=== PATIENT | male | born 1960 | race Caucasian/White ===

== ENCOUNTER 2019-06-13 10:53 | Inpatient (IN) | payer BC ==
[~2019-06-13] VITALS: Ht 167.6 cm; Wt 92.2 kg
[2019-06-21] VITALS (11 sets, daily range): BP systolic 106–134; BP diastolic 64–78; PULSE 63–77; TEMP 97.4–98
[2019-06-21 10:58] LABS: CALCIUM 8.6 mg/dL (8.4-10.2); CREATININE, serum 0.81 (0.66-1.25); POTASSIUM 4.1 mmol/L (3.4-5.0)
[2019-06-21] MEDS ORDERED: PRINIVIL20 MG PO (10:58)
[2019-06-21] MEDS ORDERED: L-LYSINE500 M1 PO (10:59)
[2019-06-21] MEDS ORDERED: VITAMIN B12 781 TAB PO (11:00)
--- NOTE | 2019-06-21 11:00 | NUR ---
Patient brought back to bay 6, ambulated without difficulty. at bedside. Consents reviewed and signed. Heart sounds regular, lung sounds clear, bowel sounds active. Vital signs stable. IV started to right wrist, lab at bedside to collect blood. Fluids infusing without difficulty. Warm blanket provided. Call cook within reach, all safety maintained. Will continue to monitor.
[2019-06-21] MEDS ORDERED: FOLIC ACID0.4 MG PO (11:01)
[2019-06-21] MEDS ORDERED: BILBERRY EXTRAC80 MG PO (11:02)
[2019-06-21] MEDS ORDERED: VITAMINE200 PO (11:02)
[2019-06-21] MEDS ORDERED: CINNAMON500 MG PO (11:03)
[2019-06-21] MEDS ORDERED: ARGININE PO (11:04)
[2019-06-21] MEDS ORDERED: CALCIUM-MAGNES1 EAC1 PO (11:07)
[2019-06-21] MEDS ORDERED: CBD oil SL (11:09)
[2019-06-21 11:29] LABS: BASO # 0.1 (0.0-0.2); BASO % 0.8 % (0.0-2.0); EOS # 0.1 (0.0-0.7); EOS % 1.2 % (0-4.0); GRAN % 48.9 % (42.2-75.2); LYMPH # 2.2 (1.2-3.4); MEAN CELL VOLUME 73 fl (80.0-100.0); MEAN CORPUSCULAR HGB CONC 29 g/dl (33.0-37.0); MEAN PLATELET VOLUME 8.5 fl (7.4-10.4); MONO # 0.7 (0.1-0.6); MONO % 11.4 % (1.7-9.3); PLATELET COUNT 590 K/mm3 (130-400); RED BLOOD COUNT 4.44 M/mm3 (4.20-5.60); REDCELL DISTRIBUTION WIDTH-CV 18.7 % (11.5-14.5)
[2019-06-21 11:30] LABS: HEMATOCRIT 32.3 % (42.0-52.0); HEMOGLOBIN 9.4 g/dl (13.5-18.0); MEAN CORPUSCULAR HEMOGLOBIN 21 pg (27.0-31.0)
--- NOTE | 2019-06-21 19:33 | NUR ---
Patient received post op to room 349, report from pacu nurse Tabitha. Patient alert & oriented. family at bedside. Vss on room air. Ivf. Tolerating water, no nausea. No interest in any other clear liquids. Minor to DD, marginal output. Low lap sites x5, drg intact. scds ble. Bedside report to Ivis MOSQUERA.
--- NOTE | 2019-06-21 21:49 | NUR ---
PATIENT UP IN CHAIR AT BEDSIDE. TRANSFERS WELL WITH MINIMAL ASSIST.
[2019-06-22] VITALS (7 sets, daily range): BP systolic 131–149; BP diastolic 42–93; PULSE 57–98; TEMP 97.4–98.5
--- NOTE | 2019-06-22 00:30 | NUR ---
Patient transfers back to bed without problem. Lap sites x5 dry and intact. Denies nausea or pain. IVF infusing to right wrist without redness or swelling. Minor to BSD with cloudy yellow urine noted. CPAP on.
--- NOTE | 2019-06-22 04:00 | NUR ---
Urine clearing, emptied 400cc at this time. Patient denies pain.
--- NOTE | 2019-06-22 06:20 | NUR ---
DC'd asencio catheter after deflating balloon. Tolerated without problem. 650cc emptied from drainage bag.
[2019-06-22 07:19] LABS: BASO % 0.1 % (0.0-2.0); GRAN # 8.7 (1.4-6.5); GRAN % 80.1 % (42.2-75.2); LYMPH # 1.3 (1.2-3.4); LYMPH % 12.1 % (20.0-51.0); MEAN CELL VOLUME 73 fl (80.0-100.0); MEAN CORPUSCULAR HGB CONC 29 g/dl (33.0-37.0); MEAN PLATELET VOLUME 8.7 fl (7.4-10.4); MONO # 0.8 (0.1-0.6); MONO % 7.2 % (1.7-9.3); PLATELET COUNT 602 K/mm3 (130-400); RED BLOOD COUNT 4.28 M/mm3 (4.20-5.60); REDCELL DISTRIBUTION WIDTH-CV 18.7 % (11.5-14.5)
[2019-06-22 07:29] LABS: CALCIUM 8.6 mg/dL (8.4-10.2); CREATININE, serum 0.84 (0.66-1.25); POTASSIUM 4.3 mmol/L (3.4-5.0)
[2019-06-22 07:42] LABS: HEMATOCRIT 31.4 % (42.0-52.0); HEMOGLOBIN 9.1 g/dl (13.5-18.0); MEAN CORPUSCULAR HEMOGLOBIN 21 pg (27.0-31.0)
--- NOTE | 2019-06-22 08:00 | NUR ---
Patient in bed resting. Alert and oriented x3. Shift assessment complete. Lap sites x5 with bandaids CDI. Tolerating clear liquids. Denies pain or further needs at this time.
--- NOTE | 2019-06-22 09:28 | NUR ---
Initial visit; Patient thanked [facility] for looking in on him and offering God's blessings.
--- NOTE | 2019-06-22 15:00 | NUR ---
SW met with patient and to discuss discharge planning. Patient lives independently at home with his and plans to return there when he is discharged. Patient's PCP is Dr Chu and he obtains prescriptions from [facility]. Patient reports he is independent with all ADLs. SW does not anticipate any discharge needs.
--- NOTE | 2019-06-22 17:40 | NUR ---
Patient has done well this afternoon, has been up ambulating in halls independetly with spouse, steady gait. Denies passing has, however states that he has been belching. Patient states mild pain to abdomen relieved by scheduled pain medications. Tolerting oral intake. Denies pain or further needs at this time. Will report off to weight shifter.
--- NOTE | 2019-06-22 20:01 | NUR ---
AMBULATING IN HALLWAY WITH . HAS EATEN 2 GENERAL MEALS TODAY. NOT PASSING GAS YET.
--- NOTE | 2019-06-22 21:37 | NUR ---
PATIENT REPORTS BEING UP IN CHAIR ALL DAY AND HAS WALKED X4. STILL NOT PASSING GAS. BOWEL SOUNDS HYPOACTIVE, DENIES NAUSEA OR PAIN. SL TO RIGHT WRIST WITHOUT REDNESS OR SWELLING.
--- NOTE | 2019-06-23 00:05 | NUR ---
PATIENT REPORTS LIQUID STOOL WITH BROWN FLECKS, DID NOT THINK HE HAD ANY FLATUS WITH IT.
[2019-06-23 04:41] VITALS: BP 128/79; PULSE 78; TEMP 97.8
--- NOTE | 2019-06-23 06:00 | NUR ---
PATIENT REPORTS ANOTHER LOOSE STOOL WITH BROWN FLECKS. REFUSES ES TYLENOL AT THIS TIME.
[2019-06-23 07:45] VITALS: BP 121/70; PULSE 58; TEMP 97.5
--- NOTE | 2019-06-23 08:00 | NUR ---
UPON ENTRY INTO ROOM, PATIENT IS SITTING UP IN THE CHAIR. PATIENT IS A&OX4. VSS. BOWEL SOUNDS ACTIVE ALL FOUR QUADRANTS. PATIENT TOLERATING DIET WITHOUT ANY COMPLAINTS OF N/V. ABDOMINAL LAP SITES X4 THERESA WITH EDGES WELL APPROXIMATED AND TIRADO SET IN PLACE. SHLOMO DRAIN TO BULB COMPRESSION TO ABDOMINAL LLQ. SCANT AMOUNT OF BRIGHT RED BLOOD PRESENT IN DRAINAGE BULB. SMALL AMOUNT OF OLD BLOODY DRAINAGE PRESENT ON SHLOMO DRAIN SITE DRESSING. MAY CATHETER DRAINING KAREL COLORED URINE TO CATHETER BAG. POSITIVE PEDAL PULSES EQUAL BILATERALLY. INT TO LEFT HAND. CALL LIGHT WITHIN REACH. PATIENT DENIES ANY OTHER NEEDS AT THIS TIME.
--- NOTE | 2019-06-23 08:00 | NUR ---
UPON ENTRY TO ROOM, PATIENT IS SITTING UP IN THE CHAIR WITH HIS PRESENT AT THE BEDSIDE. PATIENT IS A&OX4. VSS. BOWEL SOUNDS ACTIVE ALL FOUR QUADRANTS. PATIENT TOLERATING DIET WITHOUT ANY COMPLAINTS OF N/V. ABDOMINAL LAP SITES X5 DRESSED WITH BANDAIDS AND ARE CD&I. POSITIVE PEDAL PULSES EQUAL BILATERALLY. RIGHT WRIST TO INT. CALL LIGHT WITHIN REACH. PATIENT DENIES ANY OTHER NEEDS AT THIS TIME.
[2019-06-23 12:58] VITALS: BP 122/74; PULSE 56; TEMP 97.8
[2019-06-23 16:55] VITALS: BP 118/75; PULSE 73; TEMP 97.9
--- NOTE | 2019-06-23 19:02 | NUR ---
REPORT GIVEN TO DEMETRI PORTER.
[2019-06-23 20:35] VITALS: BP 115/62; PULSE 63; TEMP 98
--- NOTE | 2019-06-23 21:00 | NUR ---
PATIENT HAS BEEN AMBULATING IN HALLWAY WITHOUT DIFFICULTY. AT BEDSIDE. TAKES HS MED AND WANTS TO BE AWAKENED FOR ES TYLENOL AND TORADOL AT MIDNIGHT. SL TO RIGHT WRIST WITHOUT REDNESS OR SWELLING. REPORTS PASSING ANOTHER LIQUID STOOL. LAP SITES TO ABDOMEN X5 D/I.
--- NOTE | 2019-06-24 00:30 | NUR ---
TAKES SCHEDULED TORADOL AND ES TYLENOL AT THIS TIME.
[2019-06-24 00:37] VITALS: BP 135/73; PULSE 63; TEMP 97.8
[2019-06-24 04:30] VITALS: BP 120/84; PULSE 61; TEMP 97.7
--- NOTE | 2019-06-24 06:15 | NUR ---
UP IN ROOM INDEPENDENTLY. TAKES SCHEDULED ES TYLENOL AND TORADOL AT THIS TIME. HAS LOOSE STOOL AND FLATUS THIS AM.
[2019-06-24 08:23] VITALS: BP 119/71; PULSE 61; TEMP 97.7
--- NOTE | 2019-06-24 08:50 | NUR ---
Patient sitting up in recliner, spouse at bedside. Alert and oriented x 3. Shift assessment complete. Has been up ambulating in halls independently with steady gait. Lap sites x5 with edges well approximated. Denies pain at this time. However, states soreness. Patient states he has had BM and is passing gas. Tolerating oral intake without difficulty. Denies further needs at this time.
[2019-06-24] MEDS ORDERED: ROXICODONE 55 MG/TAB PO (10:17)
--- NOTE | 2019-06-24 10:25 | NUR ---
Dr. Matthews in to see patient.
--- NOTE | 2019-06-24 12:30 | NUR ---
Discharge education provided to patient. Educated on signs and symptoms of infection as well as activity restrictions. Patient denies pain at this time. All questions answered. Denies pain or further needs at this time. INT discontinued, catheter tip intact. Patient ambulated out with surgical staff and spouse.
[2019-06-24 12:40] VITALS: BP 113/60; PULSE 60; TEMP 98.3
== END 2019-06-24 12:30 | disposition home or self-care (01) | DRG 330 ==
LOC: SURG 06-21 09:39 → INPTSU 06-21 09:39 → SURG 06-21 12:00
PROVIDERS: ADMIT Surgery
PROC: 8E0W4CZ Robotic Assisted Procedure of Trunk Region, Percutaneous Endoscopic Approach (ICD-10-PCS; 2019-06-21)
PROC: 0DTF4ZZ Resection of Right Large Intestine, Percutaneous Endoscopic Approach (ICD-10-PCS; principal; 2019-06-21 12:00)
DX: K52.89 Other specified noninfective gastroenteritis and colitis (principal); Q85.9 Phakomatosis, unspecified; K63.5 Polyp of colon; I10 Essential (primary) hypertension; J45.909 Unspecified asthma, uncomplicated; G47.30 Sleep apnea, unspecified; D64.9 Anemia, unspecified; Z88.0 Allergy status to penicillin
CPT/HCPCS: A4314; A9284; J0690; J1100; J1170; J1650; J1885; J2405; J2704; J3010; J7120